=== PATIENT | male | born 1985 | race Caucasian/White ===

== ENCOUNTER 2018-09-11 08:34 | Outpatient (CLI) | payer OTHER ==
[2018-09-11 09:32] LABS: BASOPHILS # (AUTO) 0.1 X10'3 (0-0.2); BASOPHILS % (AUTO) 0.7 % (0-1); EOSINOPHILS # (AUTO) 0.3 X10'3 (0-0.9); EOSINOPHILS % (AUTO) 4.1 % (0-6); HEMATOCRIT 39.9 % (42.0-52.0); HEMOGLOBIN 13.3 g/dl (14.0-17.9); LYMPHOCYTES # (AUTO) 3.2 X10'3 (1.1-4.8); LYMPHOCYTES % (AUTO) 41.7 % (21-51); MEAN CORPUSCULAR HEMOGLOBIN 28.1 PG (27.0-31.0); MEAN CORPUSCULAR HGB CONC 33.4 g/dL (33.0-36.5); MEAN CORPUSCULAR VOLUME 84.3 FL (78-98); MEAN PLATELET VOLUME 7.5 FL (7.4-10.4); MONOCYTES # (AUTO) 0.8 X10'3 (0-0.9); MONOCYTES % (AUTO) 10.4 % (2-12); NEUTROPHILS # (AUTO) 3.3 X10'3 (1.8-7.7); NEUTROPHILS % (AUTO) 43.1 % (42-75); PLATELET COUNT 256 X10'3 (140-440); RED BLOOD COUNT 4.74 X10'6 (4.70-6.10); RED CELL DISTRIBUTION WIDTH 13.8 % (11.5-14.5); WHITE BLOOD COUNT 7.7 X10'3 (4.5-11.0)
[2018-09-11 09:35] LABS: HEMOGLOBIN A1C 6.1 % (4.5-6.2)
[2018-09-11 09:46] LABS: ALANINE AMINOTRANSFERASE 30 U/L (12-78); ALBUMIN 3.3 G/DL (3.4-5.0); ANION GAP 10 (8-16); BLOOD UREA NITROGEN 13 MG/DL (7-18); BUN/CREATININE RATIO 15.3 (5.4-32.0); CALCIUM 8.6 MG/DL (8.5-10.1); CHLORIDE 105 MMOL/L (99-107); CHOL/HDL RATIO 4.7 (0.00-4.99); CHOLESTEROL 165 MG/DL (0-200); CREATININE 0.85 MG/DL (0.60-1.10); GLUCOSE 120 MG/DL (70-104); HDL CHOLESTEROL 35 MG/DL (35-60); LDL CHOLESTEROL 102 MG/DL (50-100); MAGNESIUM 1.7 MG/DL (1.5-2.4); POTASSIUM 3.4 MMOL/L (3.5-5.1); SODIUM 139 MMOL/L (135-145); TOTAL CARBON DIOXIDE 24.3 MMOL/L (24-32); TRIGLYCERIDES 221 MG/DL (20-135); eGFR > 90 ML/MIN
[2018-09-12 13:21] LABS: PSA, ULTRASENSITIVE W/O SERIAL 0.552 ng/mL (0.000-4.000)
[2018-09-13 11:12] LABS: TESTOSTERONE, FREE, DIRECT 8.5 pg/mL (8.7-25.1)
== END 2018-09-11 23:59 | disposition home or self-care (01) ==
LOC: LAB 08:34
PROVIDERS: ATTEND Family Medicine
DX: E29.1 Testicular hypofunction (principal); R53.83 Other fatigue
CPT/HCPCS: 36415; 80048; 80061; 83036; 83735; 84153; 84402; 84403; 84439; 84443; 84460; 85025

== ENCOUNTER 2018-10-28 02:27 | Emergency (ER) | payer OTHER ==
[~2018-10-28] VITALS: Ht 180.3 cm; Wt 102.2 kg
[2018-10-28 02:30] VITALS: BP 179/122
[2018-10-28] MEDS ORDERED: amox tr/potassium clavulanate 875/125mg TAB PO ONE (03:05)
[2018-10-28] MEDS ORDERED: TETanus/Pertussis (Acell)/Diphther VAC/PF (Tdap-Adult) 0.5ml syringe IM ONE (03:05)
[2018-10-28] MEDS ORDERED: AMOX-580 PO (03:06)
== END 2018-10-28 03:18 | disposition home or self-care (01) ==
LOC: ER 02:28
DX: S91.331A Puncture wound without foreign body, right foot, initial encounter (principal); Z79.2 Long term (current) use of antibiotics; W45.0XXA Nail entering through skin, initial encounter; Y93.89 Activity, other specified; Y92.89 Other specified places as the place of occurrence of the external cause; Y99.8 Other external cause status
CPT/HCPCS: 73630; 90471; 90715; 99283

== ENCOUNTER 2021-11-09 18:05 | Emergency (ER) | payer OTHER ==
[~2021-11-09] VITALS: Ht 180.3 cm; Wt 122.7 kg
[2021-11-09 18:15] VITALS: BP 178/107
[2021-11-09] MEDS ORDERED: erythromycin ophthalmic ointment 1gm tube EACHEYE ONE (18:30)
[2021-11-09] MEDS ORDERED: proparacaine 0.5% ophthalmic drops 15ml EACHEYE ONE (18:30)
--- NOTE | 2021-11-09 18:48 | NUR ---
Patient with PA. Lito
[2021-11-09] MEDS ORDERED: ERYT1OIN6 EACHEYE (18:57)
== END 2021-11-09 19:11 | disposition home or self-care (01) ==
LOC: ER 18:06
DX: S05.01XA Injury of conjunctiva and corneal abrasion without foreign body, right eye, initial encounter (principal); H10.31 Unspecified acute conjunctivitis, right eye; Z79.2 Long term (current) use of antibiotics; X58.XXXA Exposure to other specified factors, initial encounter; Y93.89 Activity, other specified; Y92.89 Other specified places as the place of occurrence of the external cause; Y99.8 Other external cause status
CPT/HCPCS: 99283